=== PATIENT | male | born 1960 | race Caucasian/White ===

== ENCOUNTER 2020-09-30 13:06 | Emergency (ER) | payer OTHER ==
--- NOTE | 2020-09-30 14:04 | XRAY ---
Indication: Uncontrolled hypertension. Comparison: None Portable chest demonstrates left hemidiaphragm elevation. No focal infiltrate, consolidation, or large effusion. Heart not enlarged for AP portable technique. Bony thorax intact with mild degenerative changes and mild dextroscoliosis. Incidental multiple epigastric surgical clips. Impression: Nonacute chest with chronic features.
[2020-09-30 14:05] LABS: Absolute Neutrophil Ct (ANC) 4.52 (1.4-6.9); BASOPHIL % 0.5 % (0.0-0.4); Basophil (Absolute #) 0.04 (0-0.4); Eosinophil (Absolute #) 0.71 (0-0.5); Hematocrit 44.3 % (42-50); Hemoglobin 14.5 gm/dl (12.5-18.0); Lymphocytes % 25.3 % (24.0-44.0); Mean Cell Volume 89.1 fl (78-100); Mean Corpuscular Hemoglobin 29.2 pg (26-32); Mean Corpuscular Hgb Concent. 32.7 g/dl (32-36); Mean Platelet Volume 12.6 fl (7.5-11.0); Monocyte (Absolute #) 0.63 (0.0-1.3); Neutrophil % 57.2 % (36.0-66.0); Platelet Count 197 K/mm3 (150-450); Red Blood Count 4.97 M/mm3 (4.1-5.6); Red Cell Distribution Width 13.2 % (11.5-14.0); White Blood Count 7.9 K/mm3 (4.0-10.5)
[2020-09-30 14:21] LABS: ALBUMIN 4.4 g/dL (3.5-5.0); ALKALINE PHOSPHATASE 66 U/L (38-126); ANION GAP 23.8 MEQ/L (5-15); BLOOD UREA NITROGEN 22 mg/dL (9-20); CHLORIDE 103 mmol/L (98-107); Calcium 9.1 mg/dL (8.4-10.2); Carbon Dioxide 26 mmol/L (22-30); Creatinine 1 1.04 mg/dL (0.66-1.25); EST GLOMERULAR FILTRATION RATE > 60.0 ML/MIN; Glucose 173 mg/dL (74-106); Potassium 3.7 mmol/L (3.5-5.1); SGOT/AST 35 U/L (17-59); SGPT/ALT 19 U/L (0-50); SODIUM 149 mmol/L (137-145); Total Protein 8.1 g/dL (6.3-8.2)
--- NOTE | 2020-09-30 14:35 | XRAY ---
Indication: Dizziness and posterior headache. Hypertension. Multiple contiguous axial images obtained through the head without contrast. Comparison: None Age-appropriate global atrophy and mild periventricular degenerative micro-ischemia bilaterally. Small right frontal, high right parietal, and right occipital foci of encephalomalacia favoring old infarcts. No acute intracranial hemorrhage, hydrocephalus, or mass effect. Bony calvarium intact. Visualized paranasal sinuses and mastoid air cells are clear. Impression: 1. Atrophy and degenerative micro-ischemia within normal limits for patient's age. 2. Small multifocal right cerebral infarcts. 3. No acute intracranial abnormalities.
[2020-09-30] MEDS ORDERED: APRESOLINE 20 MG/ML INJ IV ONE ×2 (14:51→16:14)
[2020-09-30] MEDS ORDERED: APRESOLINE 20 MG/ML INJ ONE ×2 (14:52→16:15)
[2020-09-30] MEDS ORDERED: Sodium Chloride 0.9% 1000 ML 0 ML ONE (14:52)
--- NOTE | 2020-09-30 15:17 | ERPHSYRPT ---
- History of Present Illness Time Seen by Provider: 09/30/20 13:17 Source: patient, police Exam Limitations: no limitations Patient Subjective Stated Complaint: pt here for sob and dizziness off and on for 3-4 days now, with some pain to left side of chest, he states hes b/p is high today Triage Nursing Assessment: pt alert, walked in, in handcuffs, pt is in local retirement, face mask in place, resp easy, skin w/d/p, chest clear, pt has lesions to left arms that states started today Physician History: 59 years old male with a history of poorly controlled hypertension, GERD sent in ER from retirement with uncontrolled hypertension, intermittent left-sided chest pain and occasional shortness of breath with some dizziness. Patient reports his blood pressure was poorly controlled few months ago in 200s and lately better controlled but still in 150s/160s. He is having dizzy spells whenever his blood pressure shoots up and some chest discomfort especially with activity with associated mild shortness of breath/palpitations. Denies any fever chills cough or sick contact. Denies any headache, numbness tingling or focal weakness. No visual disturbance. Timing/Duration: day(s), gradual onset, worse Severity: moderate Associated Symptoms: shortness of breath Allergies/Adverse Reactions: No Known Drug Allergies Allergy (Unverified 09/30/20 13:17) Home Medications: Amlodipine Besylate [Norvasc] 1 ea DAILY 09/30/20 [History] Aspirin 81 gm Chew [Baby Aspirin 81 mg Chew] 1 ea DAILY 09/30/20 [History] Hydrochlorothiazide 1 ea DAILY 09/30/20 [History] Omeprazole Magnesium [Prilosec Otc] 1 ea DAILY 09/30/20 [History] Hx Influenza Vaccination/Date Given: No Hx Pneumococcal Vaccination/Date Given: No Immunizations Up to Date: Yes Travel Risk - International Travel Have you traveled outside of the country in past 3 weeks: No - Coronavirus Screening Are you exhibiting any of the following symptoms?: No Close contact with a COVID-19 positive Pt in past 14-21 Days: No - Vaccine Status Have you recieved a Covid-19 vaccination: Yes 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: Moderna - Vaccination Dates Date of 2cond Vaccination (if applicable): may - Review of Systems Constitutional: No Symptoms Eyes: No Symptoms Ears, Nose, & Throat: No Symptoms Respiratory: Dyspnea Cardiac: Chest Pain Abdominal/Gastrointestinal: No Symptoms Genitourinary Symptoms: No Symptoms Musculoskeletal: No Symptoms Skin: No Symptoms Neurological: Dizziness Psychological: No Symptoms Endocrine: No Symptoms Hematologic/Lymphatic: No Symptoms Immunological/Allergic: No Symptoms - Past Medical History Pertinent Past Medical History: Yes Cardiac History: Hypertension GI Medical History: GERD - Past Surgical History Past Surgical History: Yes Musculoskeletal: Orthopedic Surgery Other Surgical History: spinal fusion - Social History Smoking Status: Former smoker Exposure to second hand smoke: No Drug Use: none Patient Lives Alone: No - Nursing Vital Signs Nursing Vital Signs: Initial Vital Signs Pulse Rate 85 09/30/20 14:07 Respiratory Rate 16 09/30/20 14:07 Blood Pressure 208/104 09/30/20 14:07 O2 Sat by Pulse Oximetry 98 09/30/20 14:07 Pain Scale Pain Intensity 0 - Physical Exam General Appearance: no apparent distress, alert Eye Exam: PERRL/EOMI, eyes nml inspection Ears, Nose, Throat Exam: normal ENT inspection, TMs normal, pharynx normal Neck Exam: normal inspection, non-tender, supple, full range of motion Respiratory Exam: normal breath sounds, lungs clear Cardiovascular Exam: regular rate/rhythm, normal heart sounds Gastrointestinal/Abdomen Exam: soft, normal bowel sounds, No tenderness Back Exam: normal inspection, normal range of motion Extremity Exam: normal inspection, normal range of motion, pelvis stable Neurologic Exam: alert, oriented x 3, cooperative, industrial locomotive operator II-XII nml as tested, normal mood/affect, nml cerebellar function, sensation nml, No motor deficits Skin Exam: normal color SpO2 Interpretation: normal SpO2: 98 O2 Delivery: Room Air - Course EKG Interpreted by Me: RATE (90), Sinus Rhythm, NORMAL AXIS, NORMAL INTERVALS (Nonspecific ST and T wave changes) Ordered Tests: Active Orders 24 hr Category Date Time Status Charhouse Worker STAT Care 09/30/20 13:36 Active EKG-ER Only STAT Care 09/30/20 13:35 Active IV Insertion STAT Care 09/30/20 13:35 Active CHEST 1 VIEW (PORTABLE) Stat Exams 09/30/20 13:35 Completed HEAD WITHOUT CONTRAST [CT] Stat Exams 09/30/20 13:35 Completed CBC W DIFF Stat Lab 09/30/20 13:28 Completed CMP Stat Lab 09/30/20 13:28 Completed D-DIMER QUANTITATIVE Stat Lab 09/30/20 13:28 Completed TROPONIN Q3H Lab 09/30/20 13:45 Completed TROPONIN Q3H Lab 09/30/20 17:06 Completed TROPONIN Q3H Lab 09/30/20 19:45 Ordered TROPONIN Q3H Lab 09/30/20 22:45 Ordered TROPONIN Q3H Lab 10/01/20 01:45 Ordered UA W/RFX UR CULTURE Stat Lab 09/30/20 13:28 Completed Transfer Order Routine Transfer 09/30/20 Ordered Medication Summary Generic Name Dose Route Start Last Admin Trade Name Freq PRN Reason Stop Dose Admin Sodium Chloride 1,000 mls @ 125 mls/hr 09/30/20 17:30 09/30/20 18:12 Sodium Chloride 0.45% 1000 Ml IV 10/30/20 17:29 125 mls/hr .Q8H MARILU Administration Discontinued Medications Generic Name Dose Route Start Last Admin Trade Name Freq PRN Reason Stop Dose Admin Hydralazine HCl 10 mg 09/30/20 14:51 09/30/20 14:56 Apresoline 20 Mg/Ml Inj IV 09/30/20 14:52 10 mg STAT ONE Administration Hydralazine HCl Confirm 09/30/20 14:52 Apresoline 20 Mg/Ml Inj Administered 09/30/20 14:53 Dose 20 mg .ROUTE .STK-MED ONE Hydralazine HCl 10 mg 09/30/20 16:14 09/30/20 16:16 Apresoline 20 Mg/Ml Inj IV 09/30/20 16:15 10 mg STAT ONE Administration Hydralazine HCl Confirm 09/30/20 16:15 Apresoline 20 Mg/Ml Inj Administered 09/30/20 16:16 Dose 20 mg .ROUTE .STK-MED ONE Sodium Chloride 1,000 mls @ 999 mls/hr 09/30/20 14:35 09/30/20 16:13 Sodium Chloride 0.45% 1000 Ml IV 09/30/20 15:35 Infused .Q1H1M ONE Infusion Sodium Chloride Confirm 09/30/20 14:52 Sodium Chloride 0.9% 1000 Ml Administered 09/30/20 14:53 Dose 1,000 mls @ ud .ROUTE .STK-MED ONE Sodium Chloride Confirm 09/30/20 14:56 Sodium Chloride 0.45% 1000 Ml Administered 09/30/20 14:57 Dose 1,000 mls @ ud IV .STK-MED ONE Lab/Rad Data: Laboratory Result Diagrams 09/30/20 13:28 09/30/20 13:28 Laboratory Results 09/30/20 09/30/20 09/30/20 Range/Units 17:06 13:45 13:28 WBC (4.0-10.5) K/mm3 RBC (4.1-5.6) M/mm3 Hgb (12.5-18.0) gm/dl Hct (42-50) % MCV (78-100) fl MCH (26-32) pg MCHC (32-36) g/dl RDW (11.5-14.0) % Plt Count (150-450) K/mm3 MPV (7.5-11.0) fl Gran % (36.0-66.0) % Eos # (Auto) (0-0.5) Absolute Lymphs (auto) (1.0-4.6) Absolute Monos (auto) (0.0-1.3) Lymphocytes % (24.0-44.0) % Monocytes % (0.0-12.0) % Eosinophils % (0.00-5.0) % Basophils % (0.0-0.4) % Absolute Granulocytes (1.4-6.9) Basophils # (0-0.4) D-Dimer 522 H* (215-500) ng/mL Sodium (137-145) mmol/L Potassium (3.5-5.1) mmol/L Chloride (98-107) mmol/L Carbon Dioxide (22-30) mmol/L Anion Gap (5-15) MEQ/L BUN (9-20) mg/dL Creatinine (0.66-1.25) mg/dL Estimated GFR ML/MIN Glucose (74-106) mg/dL Calcium (8.4-10.2) mg/dL Total Bilirubin (0.2-1.3) mg/dL AST (17-59) U/L ALT (0-50) U/L Alkaline Phosphatase (38-126) U/L Troponin I < 0.012 < 0.012 (0.000-0.034) ng/mL Serum Total Protein (6.3-8.2) g/dL Albumin (3.5-5.0) g/dL Urine Color (YELLOW) Urine Appearance (CLEAR) Urine pH (5-6) Ur Specific [place] (1.005-1.025) Urine Protein (Negative) Urine Ketones (NEGATIVE) Urine Blood (0-5) Denys/ul Urine Nitrite (NEGATIVE) Urine Bilirubin (NEGATIVE) Urine Urobilinogen (0-1) mg/dL Ur Leukocyte Esterase (NEGATIVE) Urine WBC (Auto) (0-5) /HPF Urine RBC (Auto) (0-2) /HPF U Epithel Cells (Auto) (FEW) /HPF Urine Bacteria (Auto) (NEGATIVE) /HPF Urine Mucus (Auto) (NEGATIVE) /HPF Urine Culture Reflexed (NO) Urine Glucose (NEGATIVE) mg/dL 09/30/20 09/30/20 09/30/20 Range/Units 13:28 13:28 13:28 WBC 7.9 (4.0-10.5) K/mm3 RBC 4.97 (4.1-5.6) M/mm3 Hgb 14.5 (12.5-18.0) gm/dl Hct 44.3 (42-50) % MCV 89.1 (78-100) fl MCH 29.2 (26-32) pg MCHC 32.7 (32-36) g/dl RDW 13.2 (11.5-14.0) % Plt Count 197 (150-450) K/mm3 MPV 12.6 H (7.5-11.0) fl Gran % 57.2 (36.0-66.0) % Eos # (Auto) 0.71 H (0-0.5) Absolute Lymphs (auto) 2.00 (1.0-4.6) Absolute Monos (auto) 0.63 (0.0-1.3) Lymphocytes % 25.3 (24.0-44.0) % Monocytes % 8.0 (0.0-12.0) % Eosinophils % 9.0 H (0.00-5.0) % Basophils % 0.5 (0.0-0.4) % Absolute Granulocytes 4.52 (1.4-6.9) Basophils # 0.04 (0-0.4) D-Dimer (215-500) ng/mL Sodium 149 H (137-145) mmol/L Potassium 3.7 (3.5-5.1) mmol/L Chloride 103 (98-107) mmol/L Carbon Dioxide 26 (22-30) mmol/L Anion Gap 23.8 H (5-15) MEQ/L BUN 22 H (9-20) mg/dL Creatinine 1.04 (0.66-1.25) mg/dL Estimated GFR > 60.0 ML/MIN Glucose 173 H (74-106) mg/dL Calcium 9.1 (8.4-10.2) mg/dL Total Bilirubin 0.70 (0.2-1.3) mg/dL AST 35 (17-59) U/L ALT 19 (0-50) U/L Alkaline Phosphatase 66 (38-126) U/L Troponin I (0.000-0.034) ng/mL Serum Total Protein 8.1 (6.3-8.2) g/dL Albumin 4.4 (3.5-5.0) g/dL Urine Color YELLOW (YELLOW) Urine Appearance SLIGHTLY CLOUDY (CLEAR) Urine pH 7.0 (5-6) Ur Specific [place] 1.015 (1.005-1.025) Urine Protein NEGATIVE (Negative) Urine Ketones NEGATIVE (NEGATIVE) Urine Blood NEGATIVE (0-5) Denys/ul Urine Nitrite NEGATIVE (NEGATIVE) Urine Bilirubin NEGATIVE (NEGATIVE) Urine Urobilinogen 2 (0-1) mg/dL Ur Leukocyte Esterase TRACE (NEGATIVE) Urine WBC (Auto) 3-5 (0-5) /HPF Urine RBC (Auto) NONE (0-2) /HPF U Epithel Cells (Auto) NONE (FEW) /HPF Urine Bacteria (Auto) NONE (NEGATIVE) /HPF Urine Mucus (Auto) SLIGHT (NEGATIVE) /HPF Urine Culture Reflexed NO (NO) Urine Glucose NEGATIVE (NEGATIVE) mg/dL - Progress Progress: improved, re-examined Progress Note: 09/30/20 17:08 59 years old is evaluated in the ER for uncontrolled hypertension, dizziness, chest pain. Patient has nonfocal neuro exam. EKG showed normal sinus rhythm with no acute ST elevations. Negative initial troponins. Mildly elevated D- dimer at 522 which according to age-adjusted is negative with patient oxygen saturation well above 95%. He is given hydralazine IV 10 mg which did help with the blood pressure systolic to 160s but again it rebounds to 208 systolic and given another dose. Patient CMP showed blood sugar of 173 with normal bicarb and gap of 23.9 with mild elevation in BUN and sodium 149. He is started on half-normal saline. Does not have history of diabetes mellitus and I believe patient is dehydrated causing this elevated gap. Urine ketones. Chest x-ray negative. Discussed with hospitalist on-call Dr. John Davey, reviewed presentation, work-up and current management, recommended IV hydralazine as needed and starting on Toprol 50 XL with oral hydralazine 25 mg 3 times daily and continue on his home meds. Patient was ready for admission but later on it was found out that he is actually a patient of [facility] who is in [facility] because of there being overcrowded and if patient needs admission he needs to go to [facility]. I have called [facility], discussed with Dr. Echavarria, reviewed work-up and current management, will continue with hydration and patient is accepted for transfer. Plan discussed with patient who understand and agrees with it. Discussed with : Jules Will see patient in: hospital (observation) Counseled pt/family regarding: lab results, diagnosis, rad results - Departure Departure Disposition: Transfer Clinical Impression: Hypertensive urgency, Dehydration, Hypernatremia Condition: Stable Critical Care Time: Yes Critical Care Time(excluding separately billable procedures): Critical 30-74 mins Referrals: DOCTOR,NO FAMILY [Primary Care Provider] -
[2020-09-30 16:49] VITALS: O2SAT 98
[2020-09-30 17:35] LABS: Appearance SLIGHTLY CLOUDY (CLEAR); Bilirubin NEGATIVE (NEGATIVE); Blood NEGATIVE Ery/ul (0-5); Glucose NEGATIVE (NEGATIVE); Ketones NEGATIVE (NEGATIVE); Leukocyte Esterase TRACE (NEGATIVE); Mucus SLIGHT /HPF (NEGATIVE); Nitrite NEGATIVE (NEGATIVE); Protein,Urine Dip NEGATIVE (Negative); Specific Gravity 1.015 (1.005-1.025); Urobilinogen 2 mg/dL (0-1)
[2020-09-30 18:20] VITALS: BP 138/85; PULSE 111
[2020-09-30] MEDS ORDERED: TYLENOL 325 MG PO STA (18:33)
[2020-09-30] MEDS ORDERED: TYLENOL 325 MG ONE (18:40)
== END 2020-09-30 18:54 ==
LOC: ED 13:06
DX: I16.0 Hypertensive urgency (principal); E86.0 Dehydration; E87.0 Hyperosmolality and hypernatremia
CPT/HCPCS: 36000; 36415; 70450; 71045; 80053; 81001; 84484; 85025; 85379; 93005; 93041; 96360; 96374; 96376; 99284; 99291; J0360; A9270-GY

== ENCOUNTER 2020-10-14 01:03 | Emergency (ER) | payer OTHER ==
[2020-10-14] MEDS ORDERED: Nitrostat 0.4 MG (ED) SL ONE ×2 (01:53→02:04)
[2020-10-14] MEDS ORDERED: Zofran 4 MG/2 ML VIAL IV ONE (01:53)
[2020-10-14] MEDS ORDERED: MORPHINE SULFATE 4 MG INJ IV ONE (01:53)
[2020-10-14] MEDS ORDERED: BABY ASPIRIN 81 MG CHEW PO ONE (01:53)
[2020-10-14] MEDS ORDERED: LOPRESSOR 5 MG/5 ML INJECTION IV ONE ×2 (01:57→02:04)
--- NOTE | 2020-10-14 02:00 | ERPHSYRPT ---
- History of Present Illness Time Seen by Provider: 10/14/20 01:30 Historian: patient, police Patient Subjective Stated Complaint: pt states "I had a headache and they checked my blood pressure and it was high." Triage Nursing Assessment: pt ambulated into the er; pt is axo x4; c/o headache and htn; states 2/10 head and chest; pt states pressure to chest; pt states that he has had a headache since 1730; pt states that his blood pressure was elevated; pt states that he has mild dizziness; pt denies N/V; hypertensive 191/100; clear heart tones; clear lung sounds in all lobes; active bowel sounds in all quads; mild edema to BLE; strong yeny radial pulses; strong pedal pulses; pupils 3 mm and PERRL Physician History: This is a 59-year-old resident of a prison who has a history of hypertension elevated cholesterol and gastroesophageal reflux disease. He presents via law enforcement from the prison with high blood pressure, headache and chest pressure. The chest pressure is on the left chest and radiates into his left neck. Patient also had associated dizziness and headache. Patient was seen here on 09/30/2020 for evaluation of chest pain and similar symptoms as today. Patient took all of his medication as prescribed. Timing/Duration: yesterday Activities at Onset: none Quality: pressure Location: other (Left anterior chest) Chest Pain Radiation: neck (Left neck) Severity of Pain-Max: moderate Severity of Pain-Current: mild (To moderate) Associated Symptoms: dizziness (Headache) Prior Chest Pain/Cardiac Workup: recently seen/treated Nitro Today/Relief: no nitro taken today Aspirin Treatment Today: 81 mg x 1, 81 mg x 3, provided at home, provided by ED Allergies/Adverse Reactions: No Known Drug Allergies Allergy (Verified 10/14/20 01:13) Home Medications: Amlodipine Besylate [Norvasc] 1 ea DAILY 09/30/20 [History] Aspirin 81 gm Chew [Baby Aspirin 81 mg Chew] 1 ea DAILY 09/30/20 [History] Hydrochlorothiazide 1 ea DAILY 09/30/20 [History] Omeprazole Magnesium [Prilosec Otc] 1 ea DAILY 09/30/20 [History] Atorvastatin Calcium [Lipitor 20MG Tablet] 20 mg PO DAILY 10/14/20 [History] Ibuprofen [Ibu] 800 mg PO BID 10/14/20 [History] Metoprolol Succinate [Toprol Xl] 50 mg PO DAILY 10/14/20 [History] Hx Tetanus, Diphtheria Vaccination/Date Given: Yes Hx Influenza Vaccination/Date Given: No Hx Pneumococcal Vaccination/Date Given: No Travel Risk - International Travel Have you traveled outside of the country in past 3 weeks: No - Coronavirus Screening Are you exhibiting any of the following symptoms?: No Close contact with a COVID-19 positive Pt in past 14-21 Days: No - Vaccine Status Have you recieved a Covid-19 vaccination: Yes 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: 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 - Vaccination Dates Date of 2cond Vaccination (if applicable): august - Review of Systems Constitutional: No Symptoms Eyes: No Symptoms Ears, Nose, & Throat: No Symptoms Respiratory: No Symptoms Cardiac: Chest Pain Abdominal/Gastrointestinal: No Symptoms Genitourinary Symptoms: No Symptoms Musculoskeletal: No Symptoms Skin: No Symptoms Neurological: Dizziness, Headache Psychological: No Symptoms Endocrine: No Symptoms Hematologic/Lymphatic: No Symptoms Immunological/Allergic: No Symptoms All Other Systems: Reviewed and Negative - Past Medical History Pertinent Past Medical History: Yes Cardiac History: Hypertension GI Medical History: GERD - Past Surgical History Past Surgical History: Yes Cardiac: Cardiac Catheterization Musculoskeletal: Orthopedic Surgery Other Surgical History: spinal fusion - Social History Smoking Status: Former smoker Exposure to second hand smoke: No Drug Use: none Patient Lives Alone: No - Nursing Vital Signs Nursing Vital Signs: Initial Vital Signs Temperature 98.1 F 10/14/20 01:16 Pulse Rate 78 10/14/20 01:16 Respiratory Rate 20 10/14/20 01:16 Blood Pressure 191/100 10/14/20 01:16 O2 Sat by Pulse Oximetry 97 10/14/20 01:16 Pain Scale Pain Intensity 2 - Physical Exam General Appearance: no apparent distress, alert, anxiety Eye Exam: PERRL/EOMI, eyes nml inspection Ears, Nose, Throat Exam: normal ENT inspection, moist mucous membranes Neck Exam: normal inspection, non-tender, supple, full range of motion Respiratory Exam: normal breath sounds, chest tenderness, lungs clear, respiratory distress, airway intact Cardiovascular Exam: regular rate/rhythm, normal heart sounds, normal peripheral pulses Gastrointestinal/Abdomen Exam: soft, normal bowel sounds, No tenderness Rectal Exam: not done Back Exam: normal inspection, normal range of motion, No CVA tenderness, No vertebral tenderness Extremity Exam: normal inspection, normal range of motion, pelvis stable Neurologic Exam: alert, oriented x 3, cooperative, ip litigation associate II-XII nml as tested, normal mood/affect, nml cerebellar function, nml station & gait, sensation nml Skin Exam: normal color, warm, dry Lymphatic Exam: No adenopathy SpO2 Interpretation: normal SpO2: 97 O2 Delivery: Room Air - Course Nursing assessment & vital signs reviewed: Yes EKG Interpreted by Me: RATE (88), Sinus Rhythm, NORMAL AXIS, NORMAL INTERVALS, NORMAL QRS, NORMAL ST-T, Other (There are no acute ischemic changes on today's EKG. There is no change from the comparison EKG dated 09/30/2020) Ordered Tests: Active Orders 24 hr Category Date Time Status Title Vehicle Service Attendant STAT Care 10/14/20 01:53 Active EKG-ER Only STAT Care 10/14/20 01:53 Active IV Insertion STAT Care 10/14/20 01:53 Active Pulse Oximetry (ED) STAT Care 10/14/20 01:53 Active CHEST 1 VIEW (PORTABLE) Stat Exams 10/14/20 01:53 Taken HEAD WITHOUT CONTRAST [CT] Stat Exams 10/14/20 01:54 Taken CBC W DIFF Stat Lab 10/14/20 02:09 Completed CMP Stat Lab 10/14/20 02:09 Completed D-DIMER QUANTITATIVE Stat Lab 10/14/20 02:27 Completed NT PRO BNP Stat Lab 10/14/20 02:09 Completed PROTIME WITH INR Stat Lab 10/14/20 02:27 Completed TROPONIN Q3H Lab 10/14/20 02:00 Completed TROPONIN Q3H Lab 10/14/20 05:00 Ordered TROPONIN Q3H Lab 10/14/20 08:00 Ordered TROPONIN Q3H Lab 10/14/20 11:00 Ordered TROPONIN Q3H Lab 10/14/20 14:00 Ordered Medication Summary Discontinued Medications Generic Name Dose Route Start Last Admin Trade Name Freq PRN Reason Stop Dose Admin Aspirin 324 mg 10/14/20 01:53 10/14/20 02:06 Baby Aspirin 81 Mg Chew PO 10/14/20 01:54 324 mg STAT ONE Administration Aspirin Confirm 10/14/20 02:04 Baby Aspirin 81 Mg Chew Administered 10/14/20 02:05 Dose 324 mg .ROUTE .STK-MED ONE Metoprolol Tartrate 5 mg 10/14/20 01:57 10/14/20 02:07 Lopressor 5 Mg/5 Ml Injection IV 10/14/20 01:58 5 mg STAT ONE Administration Metoprolol Tartrate Confirm 10/14/20 02:04 Lopressor 5 Mg/5 Ml Injection Administered 10/14/20 02:05 Dose 5 mg IV .STK-MED ONE Morphine Sulfate 4 mg 10/14/20 01:53 10/14/20 02:07 Morphine Sulfate 4 Mg Inj IV 10/14/20 01:54 4 mg STAT ONE Administration Morphine Sulfate Confirm 10/14/20 02:05 Morphine Sulfate 4 Mg Inj Administered 10/14/20 02:06 Dose 4 mg .ROUTE .STK-MED ONE Nitroglycerin 0.4 mg 10/14/20 01:53 10/14/20 02:06 Nitrostat 0.4 Mg (Ed) SL 10/14/20 01:54 0.4 mg STAT ONE Administration Nitroglycerin Confirm 10/14/20 02:04 Nitrostat 0.4 Mg (Ed) Administered 10/14/20 02:05 Dose 0.4 mg SL .STK-MED ONE Ondansetron HCl 4 mg 10/14/20 01:53 10/14/20 02:07 Zofran 4 Mg/2 Ml Vial IV 10/14/20 01:54 4 mg STAT ONE Administration Ondansetron HCl Confirm 10/14/20 02:04 Zofran 4 Mg/2 Ml Vial Administered 10/14/20 02:05 Dose 4 mg .ROUTE .STK-MED ONE Lab/Rad Data: Laboratory Result Diagrams 10/14/20 02:09 10/14/20 02:09 Laboratory Results 10/14/20 10/14/20 10/14/20 Range/Units 02:27 02:09 02:09 WBC 8.8 (4.0-10.5) K/mm3 RBC 4.86 (4.1-5.6) M/mm3 Hgb 14.5 (12.5-18.0) gm/dl Hct 43.2 (42-50) % MCV 88.9 (78-100) fl MCH 29.8 (26-32) pg MCHC 33.6 (32-36) g/dl RDW 13.3 (11.5-14.0) % Plt Count 191 (150-450) K/mm3 MPV 12.4 H (7.5-11.0) fl Gran % 52.8 (36.0-66.0) % Eos # (Auto) 0.76 H (0-0.5) Absolute Lymphs (auto) 2.66 (1.0-4.6) Absolute Monos (auto) 0.71 (0.0-1.3) Lymphocytes % 30.2 (24.0-44.0) % Monocytes % 8.1 (0.0-12.0) % Eosinophils % 8.6 H (0.00-5.0) % Basophils % 0.3 (0.0-0.4) % Absolute Granulocytes 4.64 (1.4-6.9) Basophils # 0.03 (0-0.4) PT 14.6 H (9.4-12.5) SECONDS INR 1.24 (0.8-3.0) D-Dimer 436 (215-500) ng/mL Sodium 139 (137-145) mmol/L Potassium 3.6 (3.5-5.1) mmol/L Chloride 104 (98-107) mmol/L Carbon Dioxide 24 (22-30) mmol/L Anion Gap 14.8 (5-15) MEQ/L BUN 24 H (9-20) mg/dL Creatinine 1.18 (0.66-1.25) mg/dL Estimated GFR > 60.0 ML/MIN Glucose 92 (74-106) mg/dL Calcium 9.1 (8.4-10.2) mg/dL Total Bilirubin 0.60 (0.2-1.3) mg/dL AST 23 (17-59) U/L ALT 13 (0-50) U/L Alkaline Phosphatase 64 (38-126) U/L Troponin I (0.000-0.034) ng/mL NT-Pro-B Natriuret Pep 144 (0-900) pg/mL Serum Total Protein 8.0 (6.3-8.2) g/dL Albumin 4.4 (3.5-5.0) g/dL 10/14/20 Range/Units 02:00 WBC (4.0-10.5) K/mm3 RBC (4.1-5.6) M/mm3 Hgb (12.5-18.0) gm/dl Hct (42-50) % MCV (78-100) fl MCH (26-32) pg MCHC (32-36) g/dl RDW (11.5-14.0) % Plt Count (150-450) K/mm3 MPV (7.5-11.0) fl Gran % (36.0-66.0) % Eos # (Auto) (0-0.5) Absolute Lymphs (auto) (1.0-4.6) Absolute Monos (auto) (0.0-1.3) Lymphocytes % (24.0-44.0) % Monocytes % (0.0-12.0) % Eosinophils % (0.00-5.0) % Basophils % (0.0-0.4) % Absolute Granulocytes (1.4-6.9) Basophils # (0-0.4) PT (9.4-12.5) SECONDS INR (0.8-3.0) D-Dimer (215-500) ng/mL Sodium (137-145) mmol/L Potassium (3.5-5.1) mmol/L Chloride (98-107) mmol/L Carbon Dioxide (22-30) mmol/L Anion Gap (5-15) MEQ/L BUN (9-20) mg/dL Creatinine (0.66-1.25) mg/dL Estimated GFR ML/MIN Glucose (74-106) mg/dL Calcium (8.4-10.2) mg/dL Total Bilirubin (0.2-1.3) mg/dL AST (17-59) U/L ALT (0-50) U/L Alkaline Phosphatase (38-126) U/L Troponin I < 0.012 (0.000-0.034) ng/mL NT-Pro-B Natriuret Pep (0-900) pg/mL Serum Total Protein (6.3-8.2) g/dL Albumin (3.5-5.0) g/dL - Progress Progress: improved, re-examined Air Movement: good Progress Note: 10/14/20 04:10 CAT scan of the head without contrast shows no acute intracranial abnormality. Chest x-ray shows no acute cardiopulmonary process. 10/14/20 04:11 Patient denies chest pain at this time. He has no further headache. He is no longer dizzy. Blood Culture(s) Obtained: No Antibiotics given: No Counseled pt/family regarding: lab results, diagnosis, need for follow-up, rad results - Departure Departure Disposition: [facility] Clinical Impression: Hypertension, Headache, Chest pain, Hypertensive urgency Condition: Stable Critical Care Time: Yes Critical Care Time(excluding separately billable procedures): Critical 30-74 mins Referrals: DOCTOR,NO FAMILY [Primary Care Provider] - Additional Instructions: Take your medications as prescribed. Follow-up with your prescribing doctor for further management.
[2020-10-14] MEDS ORDERED: Zofran 4 MG/2 ML VIAL ONE (02:04)
[2020-10-14] MEDS ORDERED: BABY ASPIRIN 81 MG CHEW ONE (02:04)
[2020-10-14] MEDS ORDERED: MORPHINE SULFATE 4 MG INJ ONE (02:05)
[2020-10-14 02:16] LABS: Absolute Neutrophil Ct (ANC) 4.64 (1.4-6.9); BASOPHIL % 0.3 % (0.0-0.4); Basophil (Absolute #) 0.03 (0-0.4); Eosinophil % 8.6 % (0.00-5.0); Eosinophil (Absolute #) 0.76 (0-0.5); Hematocrit 43.2 % (42-50); Hemoglobin 14.5 gm/dl (12.5-18.0); Lymphocyte (Absolute #) 2.66 (1.0-4.6); Lymphocytes % 30.2 % (24.0-44.0); Mean Cell Volume 88.9 fl (78-100); Mean Corpuscular Hemoglobin 29.8 pg (26-32); Mean Corpuscular Hgb Concent. 33.6 g/dl (32-36); Mean Platelet Volume 12.4 fl (7.5-11.0); Monocyte (Absolute #) 0.71 (0.0-1.3); Monocytes % 8.1 % (0.0-12.0); Neutrophil % 52.8 % (36.0-66.0); Platelet Count 191 K/mm3 (150-450); Red Blood Count 4.86 M/mm3 (4.1-5.6); Red Cell Distribution Width 13.3 % (11.5-14.0); White Blood Count 8.8 K/mm3 (4.0-10.5)
[2020-10-14 02:32] LABS: ALBUMIN 4.4 g/dL (3.5-5.0); ALKALINE PHOSPHATASE 64 U/L (38-126); ANION GAP 14.8 MEQ/L (5-15); BLOOD UREA NITROGEN 24 mg/dL (9-20); CHLORIDE 104 mmol/L (98-107); Calcium 9.1 mg/dL (8.4-10.2); Carbon Dioxide 24 mmol/L (22-30); Creatinine 1 1.18 mg/dL (0.66-1.25); EST GLOMERULAR FILTRATION RATE > 60.0 ML/MIN; Glucose 92 mg/dL (74-106); NT PRO BNP 144 pg/mL (0-900); Potassium 3.6 mmol/L (3.5-5.1); SGOT/AST 23 U/L (17-59); SGPT/ALT 13 U/L (0-50); SODIUM 139 mmol/L (137-145)
[2020-10-14 02:36] LABS: INR 1.24 (0.8-3.0); PROTIME 14.6 SECONDS (9.4-12.5)
[2020-10-14 03:29] VITALS: PULSE 67
[2020-10-14 04:10] VITALS: BP 107/50; O2SAT 97
--- NOTE | 2020-10-14 09:26 | XRAY ---
Indication: Chest pain. Comparison: September 30, 2020. Portable chest remains clear again with incidental left hemidiaphragm elevation. Heart not enlarged. Bony thorax intact again with degenerative changes. No new/acute findings.
--- NOTE | 2020-10-14 09:28 | XRAY ---
Indication: Headache. Hypertension. Multiple contiguous axial images obtained through the head without contrast. Comparison: September 30, 2020. Stable age-appropriate global atrophy, mild periventricular degenerative micro-ischemia bilaterally, and small multifocal right cerebral infarcts. No acute intracranial hemorrhage, hydrocephalus, or mass effect. Bony calvarium intact. Paranasal sinuses and mastoid air cells are clear. Impression: Stable atrophy, degenerative micro-ischemia, and small multifocal right cerebral infarcts. No new/acute intracranial abnormalities. Comment: Preliminary interpretation was made by [facility]. No critical discrepancy.
== END 2020-10-14 04:14 | disposition home or self-care (01) ==
LOC: EEVIPCON 01:03 → ED 01:03
DX: I10 Essential (primary) hypertension (principal); R51.9 Headache, unspecified; R07.9 Chest pain, unspecified; I16.0 Hypertensive urgency
CPT/HCPCS: 36000; 36415; 70450; 71045; 80053; 83880; 84484; 85025; 85379; 85610; 93005; 93041; 94760; 96374; 96375; 99284; 99291; J2270; J2405; A9270-GY

== ENCOUNTER 2021-04-24 22:07 | Emergency (ER) | payer OTHER ==
[2021-04-24] MEDS ORDERED: TORAdol 30 mg Injection IV ONE (22:32)
[2021-04-24] MEDS ORDERED: Catapres 0.1 MG PO ONE (22:33)
--- NOTE | 2021-04-24 22:37 | ERPHSYRPT ---
- History of Present Illness Time Seen by Provider: 04/24/21 22:25 Source: patient Exam Limitations: no limitations Patient Subjective Stated Complaint: " I've been having chest pains for about an hour and half, it feels sharp and stapping in my left chest. It's been const ant." Triage Nursing Assessment: Pt presents to ER with complaints of left sided chest pains x 1.5 hours. Pt arrives to ER with shelter staff who states pt recieved aspirin today and blood pressure medication this morning. Pt is hypertensive upon arrival. Pt skin is pink, warm, and dry. Pt is alert and oriented x3. States pain is a 3/10 scale and sharp/stabbing in nature. Respirations are easy and unlabored. Lung sounds clear and equal throughout. States pain is constant. Pt denies shob, denies n/v/d. Denies dizziness or lightheadedness. Physician History: The patient is a 60-year-old male with a past medical significant for hypertension, GERD, and who is currently incarcerated in shelter presents with a chief complaint of chest pain. Onset was about an hour and 1/2 to 2 hours prior to arrival. The pain is described as a sore sensation that is nonradiating constant and also described as a sharp pain. The pain is pleuritic and is reproducible with palpation. He states he has never experienced pain like this before. He checked his blood pressure and was noted to be elevated despite of taking his blood pressure medications this morning. He denies shortness of breath, nausea, vomiting, diaphoresis, neck pain or bilateral shoulder pain or numbness. Timing/Duration: today Associated Symptoms: chest pain, No nausea, No vomiting, No abdominal pain, No shortness of breath Allergies/Adverse Reactions: No Known Drug Allergies Allergy (Verified 04/24/21 22:19) Home Medications: Amlodipine Besylate [Norvasc] 1 ea DAILY 09/30/20 [History] Aspirin 81 gm Chew [Baby Aspirin 81 mg Chew] 1 ea DAILY 09/30/20 [History] Omeprazole Magnesium [Prilosec Otc] 1 ea DAILY 09/30/20 [History] hydroCHLOROthiazide [Hydrochlorothiazide] 1 ea DAILY 09/30/20 [History] Atorvastatin Calcium [Lipitor 20MG Tablet] 20 mg PO DAILY 10/14/20 [History] Ibuprofen [Ibu] 800 mg PO BID 10/14/20 [History] Metoprolol Succinate [Toprol Xl] 50 mg PO DAILY 10/14/20 [History] Hx Tetanus, Diphtheria Vaccination/Date Given: No Hx Influenza Vaccination/Date Given: No Hx Pneumococcal Vaccination/Date Given: No Immunizations Up to Date: No Travel Risk - International Travel Have you traveled outside of the country in past 3 weeks: No - Coronavirus Screening Are you exhibiting any of the following symptoms?: No Close contact with a COVID-19 positive Pt in past 14-21 Days: No - Vaccine Status Have you recieved a Covid-19 vaccination: Yes Director Of Retail Marketing: Moderna - Vaccination Dates Date of 2cond Vaccination (if applicable): unknown - Review of Systems Constitutional: No Symptoms Eyes: No Symptoms Ears, Nose, & Throat: No Symptoms Respiratory: No Symptoms, No Cough, No Dyspnea, No Dyspnea on Exertion (PEOPLES) Cardiac: Chest Pain, Other (HTN), No Edema, No Palpitations, No Syncope Abdominal/Gastrointestinal: No Symptoms Genitourinary Symptoms: No Symptoms Musculoskeletal: No Symptoms Skin: No Symptoms Neurological: No Symptoms Psychological: No Symptoms Endocrine: No Symptoms All Other Systems: Reviewed and Negative - Past Medical History Pertinent Past Medical History: Yes Neurological History: Stroke Cardiac History: Coronary Artery Disease, Hypertension GI Medical History: GERD Other Medical History: throat cancer - Past Surgical History Past Surgical History: Yes Cardiac: Cardiac Catheterization Musculoskeletal: Orthopedic Surgery Other Surgical History: spinal fusion - Social History Smoking Status: Never smoker Exposure to second hand smoke: No Drug Use: none Patient Lives Alone: No - Nursing Vital Signs Nursing Vital Signs: Initial Vital Signs Temperature 97.2 F 04/24/21 22:09 Pulse Rate 82 04/24/21 22:09 Respiratory Rate 20 04/24/21 22:09 Blood Pressure 196/106 04/24/21 22:09 O2 Sat by Pulse Oximetry 98 04/24/21 22:09 Pain Scale Pain Intensity 0 - Physical Exam General Appearance: no apparent distress, alert Eye Exam: PERRL/EOMI, eyes nml inspection Ears, Nose, Throat Exam: moist mucous membranes, No pharyngeal erythema Neck Exam: normal inspection, non-tender, supple Respiratory Exam: normal breath sounds, chest tenderness, lungs clear, airway intact, No respiratory distress Cardiovascular Exam: regular rate/rhythm, normal heart sounds, normal peripheral pulses, capillary refill <2 sec, No murmur, No friction rub, No gallop, No edema Gastrointestinal/Abdomen Exam: soft, No tenderness, No distention, No mass, No guarding Rectal Exam: deferred Back Exam: normal inspection Extremity Exam: normal inspection Neurologic Exam: alert, oriented x 3, cooperative Skin Exam: normal color, warm, dry SpO2 Interpretation: normal SpO2: 98 O2 Delivery: Room Air - Course Nursing assessment & vital signs reviewed: Yes EKG Interpreted by Me: RATE, Sinus Rhythm, Left [place] Deviation, NORMAL INTE RVALS, NORMAL QRS, Other (Evidence of old inferior infarct, EKG otherwise appears similar to EKG obtained in 09/2020) - Radiology Exams Chest X-ray Interpretation: Interpreted by me, Reviewed by me (Left diaphragm again noted to be elevated and appears similar to x-ray obtained in September 2020. Otherwise no acute cardiopulmonary process.) Ordered Tests: Medication Summary Discontinued Medications Generic Name Dose Route Start Last Admin Trade Name So PRN Reason Stop Dose Admin Clonidine 0.1 mg 04/24/21 22:33 04/24/21 23:19 Clonidine Hcl 0.1 Mg Tablet PO 04/24/21 22:34 0.1 mg STAT ONE Administration Clonidine Confirm 04/24/21 23:18 Clonidine Hcl 0.1 Mg Tablet Administered 04/24/21 23:19 Dose 0.1 mg .ROUTE .STK-MED ONE Ketorolac Tromethamine 15 mg 04/24/21 22:32 04/24/21 23:19 Ketorolac Tromethamine 30 Mg/Ml Inj IV 04/24/21 22:33 15 mg STAT ONE Administration Ketorolac Tromethamine Confirm 04/24/21 23:18 Ketorolac Tromethamine 30 Mg/Ml Inj Administered 04/24/21 23:19 Dose 30 mg .ROUTE .STK-MED ONE Lab/Rad Data: Laboratory Result Diagrams 04/24/21 22:38 04/24/21 22:38 Laboratory Results 04/25/21 04/24/21 04/24/21 Range/Units 01:22 22:38 22:38 WBC (4.0-10.5) K/mm3 RBC (4.1-5.6) M/mm3 Hgb (12.5-18.0) gm/dl Hct (42-50) % MCV (78-100) fl MCH (26-32) pg MCHC (32-36) g/dl RDW (11.5-14.0) % Plt Count (150-450) K/mm3 MPV (7.5-11.0) fl Gran % (36.0-66.0) % Eos # (Auto) (0-0.5) Absolute Lymphs (auto) (1.0-4.6) Absolute Monos (auto) (0.0-1.3) Lymphocytes % (24.0-44.0) % Monocytes % (0.0-12.0) % Eosinophils % (0.00-5.0) % Basophils % (0.0-0.4) % Absolute Granulocytes (1.4-6.9) Basophils # (0-0.4) D-Dimer 367 (215-500) ng/mL Sodium (137-145) mmol/L Potassium (3.5-5.1) mmol/L Chloride (98-107) mmol/L Carbon Dioxide (22-30) mmol/L Anion Gap (5-15) MEQ/L BUN (9-20) mg/dL Creatinine (0.66-1.25) mg/dL Estimated GFR ML/MIN Glucose (74-106) mg/dL Calcium (8.4-10.2) mg/dL Troponin I < 0.012 < 0.012 (0.000-0.034) ng/mL NT-Pro-B Natriuret Pep (0-900) pg/mL Lipase (23-300) U/L 04/24/21 04/24/21 Range/Units 22:38 22:38 WBC 6.4 (4.0-10.5) K/mm3 RBC 4.74 (4.1-5.6) M/mm3 Hgb 14.6 (12.5-18.0) gm/dl Hct 43.6 (42-50) % MCV 92.0 (78-100) fl MCH 30.8 (26-32) pg MCHC 33.5 (32-36) g/dl RDW 13.6 (11.5-14.0) % Plt Count 210 (150-450) K/mm3 MPV 11.2 H (7.5-11.0) fl Gran % 62.8 (36.0-66.0) % Eos # (Auto) 0.26 (0-0.5) Absolute Lymphs (auto) 1.50 (1.0-4.6) Absolute Monos (auto) 0.59 (0.0-1.3) Lymphocytes % 23.4 L (24.0-44.0) % Monocytes % 9.2 (0.0-12.0) % Eosinophils % 4.1 (0.00-5.0) % Basophils % 0.5 (0.0-0.4) % Absolute Granulocytes 4.02 (1.4-6.9) Basophils # 0.03 (0-0.4) D-Dimer (215-500) ng/mL Sodium 139 (137-145) mmol/L Potassium 4.4 (3.5-5.1) mmol/L Chloride 108 H (98-107) mmol/L Carbon Dioxide 27 (22-30) mmol/L Anion Gap 8.9 (5-15) MEQ/L BUN 24 H (9-20) mg/dL Creatinine 1.01 (0.66-1.25) mg/dL Estimated GFR > 60.0 ML/MIN Glucose 108 H (74-106) mg/dL Calcium 8.8 (8.4-10.2) mg/dL Troponin I (0.000-0.034) ng/mL NT-Pro-B Natriuret Pep 186 (0-900) pg/mL Lipase 60 (23-300) U/L - Progress Progress: improved Progress Note: 04/24/21 22:38 EKG appears similar to an EKG obtained in September 2020 when reviewing his EMR. The patient presents with chest pain that seems atypical for ACS at this time. I will obtain serial troponins and EKG to eval for evidence of NSTEMI or ACS equivalent. Labs to include D-dimer, CBC, BMP, lipase will be obtained. Obtain a two-view chest x-ray to eval for evidence of a pneumothorax, pneumonia or pleural effusion. Right now I have a low gestalt for a PE and if his D-dimer is within normal limits I will defer CTA at this time. His blood pressure is markedly elevated and I will administer clonidine to bring his blood pressure down. Also administer Toradol for his pain. Right now his pain does not seem consistent with a dissecting aortic aneurysm. If his 2V chest x-ray has no evidence of a widened mediastinum and given and his peripheral pulses are strong bilaterally I will defer work-up in the form of a CTA. 04/25/21 02:04 Serial troponins were within normal limits. He was reassessed to find that his chest pain had resolved. Blood pressure trended down with a single dose of clonidine. I believe the patient will be okay to be discharged back to shelter. 04/25/21 02:15 Counseled pt/family regarding: lab results, diagnosis, need for follow-up, rad results - Departure Departure Disposition: Alf/Usp Clinical Impression: Atypical chest pain, Accelerated hypertension Condition: Stable Critical Care Time: No Referrals: DOCTOR,NO FAMILY [Primary Care Provider] - Follow up/PCP as directed Instructions: High Blood Pressure in Adults, Chest Pain (DC)
[2021-04-24 22:43] LABS: Absolute Neutrophil Ct (ANC) 4.02 (1.4-6.9); BASOPHIL % 0.5 % (0.0-0.4); Basophil (Absolute #) 0.03 (0-0.4); Eosinophil % 4.1 % (0.00-5.0); Eosinophil (Absolute #) 0.26 (0-0.5); Hematocrit 43.6 % (42-50); Hemoglobin 14.6 gm/dl (12.5-18.0); Lymphocytes % 23.4 % (24.0-44.0); Mean Corpuscular Hemoglobin 30.8 pg (26-32); Mean Corpuscular Hgb Concent. 33.5 g/dl (32-36); Mean Platelet Volume 11.2 fl (7.5-11.0); Monocyte (Absolute #) 0.59 (0.0-1.3); Monocytes % 9.2 % (0.0-12.0); Neutrophil % 62.8 % (36.0-66.0); Platelet Count 210 K/mm3 (150-450); Red Blood Count 4.74 M/mm3 (4.1-5.6); Red Cell Distribution Width 13.6 % (11.5-14.0); White Blood Count 6.4 K/mm3 (4.0-10.5)
[2021-04-24 22:56] LABS: ANION GAP 8.9 MEQ/L (5-15); BLOOD UREA NITROGEN 24 mg/dL (9-20); CHLORIDE 108 mmol/L (98-107); Calcium 8.8 mg/dL (8.4-10.2); Carbon Dioxide 27 mmol/L (22-30); Creatinine 1 1.01 mg/dL (0.66-1.25); EST GLOMERULAR FILTRATION RATE > 60.0 ML/MIN; Glucose 108 mg/dL (74-106); LIPASE 60 U/L (23-300); NT PRO BNP 186 pg/mL (0-900); Potassium 4.4 mmol/L (3.5-5.1); SODIUM 139 mmol/L (137-145)
[2021-04-24] MEDS ORDERED: TORAdol 30 mg Injection ONE (23:18)
[2021-04-24] MEDS ORDERED: Catapres 0.1 MG ONE (23:18)
[2021-04-25 02:08] VITALS: BP 160/99; PULSE 67
[2021-04-25 02:16] VITALS: O2SAT 98
--- NOTE | 2021-04-25 08:47 | XRAY ---
Indication: Chest pain. Comparison: October 14, 2020. PA/lateral chest remains clear again with incidental chronic left hemidiaphragm elevation. Heart not enlarged. Bony thorax intact again with mild osteopenia, degenerative changes, mild scoliosis, and accentuated thoracic kyphosis. No new/acute findings.
== END 2021-04-25 02:16 | disposition home or self-care (01) ==
LOC: ED 22:07 → EEVIPCON 22:07 → ED 04-25 02:16
DX: R07.89 Other chest pain (principal); I10 Essential (primary) hypertension
CPT/HCPCS: 36000; 36415; 71046; 80048; 83690; 83880; 84484; 85025; 85379; 93005; 93041; 94760; 96374; 99284; J1885; A9270-GY